=== PATIENT | female | born 1955 | race Caucasian/White ===

== ENCOUNTER → 2017-05-16 | Outpatient (CLI) | payer OTHER, BC ==
[~2017-05-16] MED LIST: AMOX1TAB64 PO; CAPE500T24 PO; CHOL10002 PO; HYDR-3240 PO; HYDR25TA6 PO; LEVO75TA PO; OMNIPAQUE 350 MG/ML, 100ML BOTTLE ONE; ONDA4TAB7 PO; OXYB5TAB33 PO; OXYC-302 PO; OXYC-306 PO; POLY17PO5 PO
== END | disposition home or self-care (01) ==
LOC: CFH 15:00
PROVIDERS: ATTEND Internal Medicine Cardiovascular Disease
DX: I25.10 Atherosclerotic heart disease of native coronary artery without angina pectoris (principal); I77.819 Aortic ectasia, unspecified site; M51.34 Other intervertebral disc degeneration, thoracic region; Z85.048 Personal history of other malignant neoplasm of rectum, rectosigmoid junction, and anus; Z87.891 Personal history of nicotine dependence
CPT/HCPCS: 71275; 82565; 93306; Q9967

== ENCOUNTER → 2017-06-07 | Outpatient (CLI) | payer OTHER, BC ==
[~2017-06-07] MED LIST changes: -OMNIPAQUE 350 MG/ML, 100ML BOTTLE ONE
== END | disposition home or self-care (01) ==
LOC: CFH 10:44
PROVIDERS: ATTEND Specialist
DX: Z12.31 Encounter for screening mammogram for malignant neoplasm of breast (principal)
CPT/HCPCS: G0202

== ENCOUNTER 2018-03-07 11:35 | Emergency (ER) | payer BC, OTHER ==
[~2018-03-07] VITALS: Ht 162.6 cm; Wt 84.3 kg
[2018-03-07 12:38] LABS: BASOPHILS # (AUTO) 0.04 x10^3/uL (0-0.1); BASOPHILS % (AUTO) 1 % (0-1); EOSINOPHILS # (AUTO) 0.14 x10^3/uL (0-0.4); EOSINOPHILS % (AUTO) 2 % (1-7); LYMPHOCYTES # (AUTO) 1.21 x10^3/uL (1-3.4); LYMPHOCYTES % (AUTO) 15 % (22-44); MD NO; MEAN CORPUSCULAR HGB CONC 33.9 g/dL (32.4-35.8); MEAN CORPUSCULAR VOLUME 88.4 fL (80-100); MEAN PLATELET VOLUME 7.8 fL (7.4-10.4); MONOCYTES # (AUTO) 0.51 x10^3/uL (0.2-0.8); MONOCYTES % (AUTO) 6 % (2-9); NEUTROPHILS # (AUTO) 6.26 x10^3/uL (1.8-6.8); NEUTROPHILS % (AUTO) 77 % (42-75); PLATELET COUNT 308 x10^3/uL (130-400); RED BLOOD COUNT 4.79 x10^6/uL (3.82-5.3); RED CELL DISTRIBUTION WIDTH 13.6 % (9.6-15.2)
[2018-03-07 12:47] LABS: ALBUMIN 3.8 g/dL (3.4-5.0); ANION GAP 7 mmol/L (5-15); CALCIUM 8.8 mg/dL (8.5-10.1); CHLORIDE 111 mmol/L (98-107); CREATININE 0.78 mg/dL (0.55-1.02)
[2018-03-07 12:52] LABS: MICROSCOPIC INDICATED
[2018-03-07 12:58] LABS: CULTURE INDICATED? YES
[2018-03-07] MEDS ORDERED: CEFTRIAXONE PMX 1GM/50ML 50 ML IV ONE (13:30)
[2018-03-07 13:55] LABS: INTERNATIONAL NORMALIZED RATIO 1.02 (0.93-1.1); PROTHROMBIN TIME 10.5 Seconds (9.6-11.5)
[2018-03-07] MEDS ORDERED: CEFTRIAXONE PMX 1GM/50ML 50 ML ONE (14:13)
[2018-03-07 17:07] VITALS: BP 149/79
== END 2018-03-07 17:10 | disposition home or self-care (01) ==
LOC: ED 14:56
DX: R31.0 Gross hematuria (principal); N30.01 Acute cystitis with hematuria; I10 Essential (primary) hypertension
CPT/HCPCS: 36415; 74176; 80048; 81001; 82040; 83605; 85025; 85610; 87086; 96365; 96366; 99285; J0696

== ENCOUNTER → 2018-05-30 | Outpatient (CLI) | payer OTHER ==
[~2018-05-30] MED LIST changes: +ASPI-496 PO; +LEVO112T4 PO; +OMEG10007 PO
[2018-05-30 09:26] LABS: BASOPHILS # (AUTO) 0.03 x10^3/uL (0-0.1); BASOPHILS % (AUTO) 1 % (0-1); EOSINOPHILS # (AUTO) 0.17 x10^3/uL (0-0.4); EOSINOPHILS % (AUTO) 3 % (1-7); LYMPHOCYTES # (AUTO) 1.32 x10^3/uL (1-3.4); LYMPHOCYTES % (AUTO) 22 % (22-44); MD NO; MEAN CORPUSCULAR HEMOGLOBIN 30.2 pg (27.0-34.8); MEAN CORPUSCULAR HGB CONC 34.2 g/dL (32.4-35.8); MEAN CORPUSCULAR VOLUME 88.3 fL (80-100); MEAN PLATELET VOLUME 8.3 fL (7.4-10.4); MONOCYTES # (AUTO) 0.46 x10^3/uL (0.2-0.8); MONOCYTES % (AUTO) 8 % (2-9); NEUTROPHILS # (AUTO) 4.18 x10^3/uL (1.8-6.8); NEUTROPHILS % (AUTO) 68 % (42-75); PLATELET COUNT 318 x10^3/uL (130-400); RED BLOOD COUNT 5.25 x10^6/uL (3.82-5.3); RED CELL DISTRIBUTION WIDTH 13.2 % (9.6-15.2)
[2018-05-30 09:35] LABS: ALANINE AMINOTRANSFERASE 49 U/L (12-78); ALBUMIN 4.1 g/dL (3.4-5.0); ANION GAP 9 mmol/L (5-15); CALCIUM 9.2 mg/dL (8.5-10.1); CHLORIDE 102 mmol/L (98-107); CREATININE 0.88 mg/dL (0.55-1.02)
[2018-05-30 09:37] LABS: ALKALINE PHOSPHATASE 100 U/L (45-117); BILIRUBIN,TOTAL 1.2 mg/dL (0.2-1.0)
[2018-05-30 09:43] LABS: MICROSCOPIC AUTO
[2018-05-30 09:49] LABS: CULTURE INDICATED? YES
== END | disposition home or self-care (01) ==
LOC: STAR 08:23
PROVIDERS: ATTEND Colon & Rectal Surgery
DX: Z01.818 Encounter for other preprocedural examination (principal); Z85.048 Personal history of other malignant neoplasm of rectum, rectosigmoid junction, and anus; Z87.891 Personal history of nicotine dependence
CPT/HCPCS: 36415; 80053; 81001; 85025; 87077; 87086; 87186; 93005

== ENCOUNTER 2018-06-13 05:47 | Observation (INO) | payer OTHER ==
[~2018-06-13] VITALS: Ht 162.6 cm; Wt 97.0 kg
[2018-06-13] MEDS ORDERED: LACTATED RINGERS 1,000 ML IV SCH ×2 (06:29→06:49)
[2018-06-13] MEDS ORDERED: ACETAMINOPHEN 500 MG TABLET PO ONE (07:00)
[2018-06-13] MEDS ORDERED: ONDANSETRON ODT 8 MG PO ONE (07:00)
[2018-06-13] MEDS ORDERED: SCOPOLAMINE PATCH, 1.5MG PATCH.TD72 TD ONE (07:02)
[2018-06-13] MEDS ORDERED: BUPIVACAINE/PF-EPI 0.5% 1:200K ONE (07:06)
[2018-06-13] MEDS ORDERED: PROPOFOL 50 ML ONE ×2 (07:06→09:13)
[2018-06-13] MEDS ORDERED: FENTANYL PF 100 MCG/2ML ONE ×2 (07:06→10:07)
[2018-06-13] MEDS ORDERED: MIDAZOLAM 1 MG/ML, 2ML ONE ×2 (07:06→10:07)
[2018-06-13] MEDS ORDERED: CEFAZOLIN 1,000 MG ONE (07:07)
[2018-06-13] MEDS ORDERED: SUCCINYLCHOLINE 20 MG/ML, 10ML ONE (07:07)
[2018-06-13] MEDS ORDERED: DEXAMETHASONE 4 MG/ML, 1ML ONE ×2 (07:07)
[2018-06-13] MEDS ORDERED: ROCURONIUM 10MG/ML,5ML ONE (07:07)
[2018-06-13] MEDS ORDERED: EPHEDRINE 50 MG/ML, 1ML ONE (07:08)
[2018-06-13] MEDS ORDERED: SODIUM CHLORIDE 0.9% PF 10ML ONE (07:08)
[2018-06-13] MEDS ORDERED: PROPOFOL 10 MG/ML, 20ML ONE (07:11)
[2018-06-13] MEDS ORDERED: LIDOCAINE-MPF 2% ,5ML ONE (07:11)
[2018-06-13] MEDS ORDERED: hydrALAzine 20 MG/ML, 1ML IV PRN (07:30)
[2018-06-13] MEDS ORDERED: HYDROmorphone 1 MG/ML, 1ML IV PRN (07:30)
[2018-06-13] MEDS ORDERED: EPHEDRINE 50 MG/ML, 1ML IVPush PRN (07:30)
[2018-06-13] MEDS ORDERED: PROCHLORPERAZINE 5 MG/ML, 2ML IV PRN (07:30)
[2018-06-13] MEDS ORDERED: ALBUTEROL SULFATE 2.5 MG/3 ML NPPB PRN (07:30)
[2018-06-13] MEDS ORDERED: DIAZEPAM 5 MG/ML, 2ML IVPush PRN (07:30)
[2018-06-13] MEDS ORDERED: DIPHENHYDRAMINE 50 MG/ML, 1ML IVPush PRN ×2 (07:30→12:00)
[2018-06-13] MEDS ORDERED: LORazepam 2 MG/ML, 1ML IVPush PRN (07:30)
[2018-06-13] MEDS ORDERED: METOPROLOL 1 MG/ML, 5ML IV PRN (07:30)
[2018-06-13] MEDS ORDERED: LABETALOL 5MG/ML, 20ML IV PRN (07:30)
[2018-06-13] MEDS ORDERED: MEPERIDINE/PF 25MG/0.5ML IVPush PRN (07:30)
[2018-06-13] MEDS ORDERED: MORPHINE SULFATE 4 MG/ML, 1ML IVPush PRN ×2 (07:30→12:00)
[2018-06-13] MEDS ORDERED: OXYcodone 5 MG/5 ML ORAL.SOL UDC PO PRN (07:30)
[2018-06-13] MEDS ORDERED: CEFOTETAN PMX 1GM/50ML 50 ML ONE (07:49)
[2018-06-13] MEDS: FENTANYL PF 100 MCG/2ML IV PRN ×3 (10:06→10:48)
[2018-06-13] MEDS: MIDAZOLAM 1 MG/ML, 2ML IV PRN ×3 (10:06→10:48)
[2018-06-13] MEDS ORDERED: KETOROLAC 30 MG/1 ML ONE (10:20)
[2018-06-13] MEDS ORDERED: OXYcodone 5 MG/5 ML ORAL.SOL UDC ONE (10:20)
[2018-06-13] MEDS ORDERED: MORPHINE SULFATE 4 MG/ML, 1ML ONE (10:25)
[2018-06-13] MEDS ORDERED: ONDANSETRON ODT 4 MG ONE (11:41)
[2018-06-13 11:45] VITALS: BP 148/72
[2018-06-13] MEDS ORDERED: ONDANSETRON ODT 4 MG PO PRN (12:00)
[2018-06-13] MEDS ORDERED: ONDANSETRON 2MG/ML, 2ML IVPush PRN (12:00)
[2018-06-13 14:39] VITALS: BP 144/85
[2018-06-13] MEDS: OXYcodone/APAP 5/325MG TABLET PO PRN (14:39)
[2018-06-13] MEDS ORDERED: OXYcodone/APAP 5/325MG TABLET PO PRN (16:30)
[2018-06-13] MEDS ORDERED: KETOROLAC 30 MG/1 ML IV PRN (16:30)
[2018-06-13] MEDS: LACTATED RINGERS 1,000 ML IV SCH (17:00)
[2018-06-13 18:59] VITALS: BP 132/64
[2018-06-14] MEDS: OXYcodone/APAP 5/325MG TABLET PO PRN (01:03)
[2018-06-14 02:12] VITALS: BP 107/68
[2018-06-14] MEDS ORDERED: LEVOTHYROXINE 112 MCG TABLET PO SCH (06:00)
[2018-06-14] MEDS ORDERED: ASPIRIN 81 MG TABLET EC PO SCH (06:00)
[2018-06-14] MEDS: LACTATED RINGERS 1,000 ML IV SCH (07:18)
[2018-06-14] MEDS ORDERED: ENOXAPARIN 40 MG/0.4 ML SQ SCH (08:00)
[2018-06-14 08:25] VITALS: BP 120/72
[2018-06-14] MEDS ORDERED: HYDROCHLOROTHIAZIDE 25 MG TABLET PO SCH (09:00)
[2018-06-14] MEDS ORDERED: OXYC-302 PO (10:11)
[2018-06-14] MEDS ORDERED: POLY17PO5 PO (10:11)
== END 2018-06-14 11:45 | disposition home or self-care (01) ==
LOC: OUT 05:47 → 4NOR 11:29 → OUT 12:58 → 4NOR 12:58 → DCLOUNGE 06-14 11:32
PROVIDERS: ADMIT Colon & Rectal Surgery; ATTEND Colon & Rectal Surgery
DX: K43.5 Parastomal hernia without obstruction or gangrene (principal); Z85.048 Personal history of other malignant neoplasm of rectum, rectosigmoid junction, and anus; Z93.3 Colostomy status
CPT/HCPCS: 49654; 96372; C1781; G0378; J0330; J1100; J1650; J2250; J2704; J3010; J3490; J7120; Q0162; S0074; S2900; J0690

== ENCOUNTER 2018-06-21 22:15 | Inpatient (IN) | payer OTHER ==
[~2018-06-21] VITALS: Ht 162.6 cm; Wt 88.0 kg
[2018-06-21] MEDS ORDERED: ACETAMINOPHEN 500 MG TABLET PO ONE (23:00)
[2018-06-21] MEDS ORDERED: ACETAMINOPHEN 500 MG TABLET ONE (23:07)
[2018-06-21] MEDS ORDERED: SODIUM CHLORIDE 0.9% 1,000ML IVBOLUS ONE (23:30)
[2018-06-21 23:38] LABS: BASOPHILS # (AUTO) 0.07 x10^3/uL (0-0.1); BASOPHILS % (AUTO) 1 % (0-1); EOSINOPHILS # (AUTO) 0.25 x10^3/uL (0-0.4); EOSINOPHILS % (AUTO) 2 % (1-7); LYMPHOCYTES # (AUTO) 1.08 x10^3/uL (1-3.4); LYMPHOCYTES % (AUTO) 10 % (22-44); MD NO; MEAN CORPUSCULAR HGB CONC 33.9 g/dL (32.4-35.8); MEAN CORPUSCULAR VOLUME 88.8 fL (80-100); MEAN PLATELET VOLUME 7.7 fL (7.4-10.4); MONOCYTES # (AUTO) 0.77 x10^3/uL (0.2-0.8); MONOCYTES % (AUTO) 7 % (2-9); NEUTROPHILS # (AUTO) 8.83 x10^3/uL (1.8-6.8); NEUTROPHILS % (AUTO) 80 % (42-75); PLATELET COUNT 419 x10^3/uL (130-400); RED BLOOD COUNT 5.08 x10^6/uL (3.82-5.3); RED CELL DISTRIBUTION WIDTH 13.4 % (9.6-15.2)
[2018-06-21 23:51] LABS: ALANINE AMINOTRANSFERASE 27 U/L (12-78); ALBUMIN 3.4 g/dL (3.4-5.0); ANION GAP 12 mmol/L (5-15); CALCIUM 8.8 mg/dL (8.5-10.1); CHLORIDE 103 mmol/L (98-107)
[2018-06-21 23:53] LABS: ALKALINE PHOSPHATASE 85 U/L (45-117); BILIRUBIN,TOTAL 1.1 mg/dL (0.2-1.0); CREATININE 0.67 mg/dL (0.55-1.02); TOTAL PROTEIN 8.1 g/dL (6.4-8.2)
[2018-06-22] MEDS ORDERED: CEFTRIAXONE 1,000 MG IV ONE (01:00)
[2018-06-22] MEDS ORDERED: METRONIDAZOLE PMX 500MG/100ML 100 ML IV ONE (01:00)
[2018-06-22] MEDS ORDERED: ONDANSETRON 2MG/ML, 2ML ONE (01:33)
[2018-06-22] MEDS ORDERED: METRONIDAZOLE PMX 500MG/100ML 100 ML ONE (01:33)
[2018-06-22] MEDS ORDERED: MORPHINE SULFATE 4 MG/ML, 1ML ONE (01:33)
[2018-06-22] MEDS ORDERED: MORPHINE SULFATE 4 MG/ML, 1ML IVPush ONE ×2 (02:00→06:30)
[2018-06-22] MEDS ORDERED: ONDANSETRON 2MG/ML, 2ML IVPush ONE (02:00)
[2018-06-22 02:28] VITALS: BP 136/85
[2018-06-22] MEDS ORDERED: MAGN400O7 PO (03:08)
[2018-06-22] MEDS ORDERED: CEFTRIAXONE 1,000 MG in SODIUM CHLORIDE 0.9% 50 ML IV ONE (04:00)
[2018-06-22] MEDS ORDERED: OMNIPAQUE 350 MG/ML, 100ML BOTTLE ONE (05:38)
[2018-06-22] MEDS ORDERED: NS + 20MEQ KCL 1,000 ML IV SCH (06:52)
[2018-06-22] MEDS ORDERED: morphine SULFATE 10 MG/ML, 1ML IVPush PRN (07:00)
[2018-06-22] MEDS ORDERED: BISACODYL 10 MG SUPP PR PRN (07:00)
[2018-06-22] MEDS ORDERED: ONDANSETRON 2MG/ML, 2ML IVPush PRN (07:00)
[2018-06-22] MEDS ORDERED: POLYETHYLENE GLYCOL 17 GM PACKET PO PRN (07:00)
[2018-06-22 07:29] VITALS: BP 121/75
[2018-06-22] MEDS: FAMOTIDINE 20 MG TABLET PO SCH ×2 (08:08→21:53)
[2018-06-22] MEDS: SENNA/DOCUSATE TABLET PO SCH (08:08)
[2018-06-22] MEDS: LEVOTHYROXINE 112 MCG TABLET PO SCH (08:08)
[2018-06-22 08:48] LABS: ANION GAP 10 mmol/L (5-15); CALCIUM 8.1 mg/dL (8.5-10.1); CHLORIDE 107 mmol/L (98-107); CREATININE 0.57 mg/dL (0.55-1.02)
[2018-06-22 08:52] LABS: BASOPHILS # (AUTO) 0.06 x10^3/uL (0-0.1); BASOPHILS % (AUTO) 1 % (0-1); EOSINOPHILS # (AUTO) 0.21 x10^3/uL (0-0.4); EOSINOPHILS % (AUTO) 3 % (1-7); LYMPHOCYTES # (AUTO) 1.09 x10^3/uL (1-3.4); LYMPHOCYTES % (AUTO) 15 % (22-44); MD NO; MEAN CORPUSCULAR HEMOGLOBIN 29.5 pg (27.0-34.8); MEAN CORPUSCULAR HGB CONC 33.2 g/dL (32.4-35.8); MEAN CORPUSCULAR VOLUME 88.8 fL (80-100); MEAN PLATELET VOLUME 7.6 fL (7.4-10.4); MONOCYTES # (AUTO) 0.63 x10^3/uL (0.2-0.8); MONOCYTES % (AUTO) 9 % (2-9); NEUTROPHILS # (AUTO) 5.41 x10^3/uL (1.8-6.8); NEUTROPHILS % (AUTO) 73 % (42-75); PLATELET COUNT 379 x10^3/uL (130-400); RED BLOOD COUNT 4.52 x10^6/uL (3.82-5.3); RED CELL DISTRIBUTION WIDTH 13.7 % (9.6-15.2)
[2018-06-22] MEDS: ACETAMINOPHEN 325 MG TABLET PO PRN ×2 (09:57→17:39)
[2018-06-22] MEDS: D5%-0.45NACL+KCL 20MEQ 1,000 ML IV SCH (11:58)
[2018-06-22 12:37] VITALS: BP 122/79
[2018-06-22 20:28] VITALS: BP 129/78
[2018-06-23 00:44] VITALS: BP 121/77
[2018-06-23] MEDS: D5%-0.45NACL+KCL 20MEQ 1,000 ML IV SCH ×2 (01:00→17:03)
[2018-06-23] MEDS: ACETAMINOPHEN 325 MG TABLET PO PRN ×2 (03:35→20:05)
[2018-06-23 05:19] LABS: BASOPHILS # (AUTO) 0.05 x10^3/uL (0-0.1); BASOPHILS % (AUTO) 1 % (0-1); EOSINOPHILS # (AUTO) 0.19 x10^3/uL (0-0.4); EOSINOPHILS % (AUTO) 3 % (1-7); LYMPHOCYTES # (AUTO) 0.62 x10^3/uL (1-3.4); LYMPHOCYTES % (AUTO) 9 % (22-44); MD NO; MEAN CORPUSCULAR HEMOGLOBIN 29.9 pg (27.0-34.8); MEAN CORPUSCULAR HGB CONC 33.5 g/dL (32.4-35.8); MEAN CORPUSCULAR VOLUME 89.4 fL (80-100); MEAN PLATELET VOLUME 7.8 fL (7.4-10.4); MONOCYTES # (AUTO) 0.28 x10^3/uL (0.2-0.8); MONOCYTES % (AUTO) 4 % (2-9); NEUTROPHILS # (AUTO) 5.53 x10^3/uL (1.8-6.8); NEUTROPHILS % (AUTO) 83 % (42-75); PLATELET COUNT 391 x10^3/uL (130-400); RED BLOOD COUNT 4.72 x10^6/uL (3.82-5.3); RED CELL DISTRIBUTION WIDTH 13.2 % (9.6-15.2)
[2018-06-23 05:34] LABS: ANION GAP 6 mmol/L (5-15); CALCIUM 8.7 mg/dL (8.5-10.1); CHLORIDE 105 mmol/L (98-107); CREATININE 0.66 mg/dL (0.55-1.02)
[2018-06-23 07:05] VITALS: BP 131/83
[2018-06-23] MEDS: SENNA/DOCUSATE TABLET PO SCH (08:12)
[2018-06-23] MEDS: FAMOTIDINE 20 MG TABLET PO SCH ×2 (08:12→20:05)
[2018-06-23] MEDS: LEVOTHYROXINE 112 MCG TABLET PO SCH (08:12)
[2018-06-23] MEDS ORDERED: PROPOFOL 10 MG/ML, 50ML ONE (11:08)
[2018-06-23] MEDS ORDERED: CEFOTETAN 2 GM ONE (11:08)
[2018-06-23] MEDS ORDERED: FENTANYL PF 250 MCG/5ML ONE (11:44)
[2018-06-23] MEDS ORDERED: BUPIVACAINE/PF-EPI 0.5% 1:200K ONE (11:52)
[2018-06-23] MEDS ORDERED: SCOPOLAMINE PATCH, 1.5MG PATCH.TD72 TD ONE (12:04)
[2018-06-23] MEDS ORDERED: BUPIVACAINE/PF-EPI 0.5% 1:200K INFIL ONE (12:50)
[2018-06-23] MEDS ORDERED: ONDANSETRON 2MG/ML, 2ML ONE (13:11)
[2018-06-23] MEDS ORDERED: PROPOFOL 10 MG/ML, 20ML ONE (13:11)
[2018-06-23] MEDS ORDERED: CEFAZOLIN 1,000 MG ONE (13:11)
[2018-06-23] MEDS ORDERED: NEOSTIGMINE 1 MG/ML, 10ML ONE (13:11)
[2018-06-23] MEDS ORDERED: DEXAMETHASONE 4 MG/ML, 1ML ONE (13:11)
[2018-06-23] MEDS ORDERED: ROCURONIUM 10MG/ML,5ML ONE (13:11)
[2018-06-23] MEDS ORDERED: SUCCINYLCHOLINE 20 MG/ML, 10ML ONE (13:11)
[2018-06-23] MEDS ORDERED: GLYCOPYRROLATE 0.2MG/1ML, 5ML ONE (13:11)
[2018-06-23] MEDS ORDERED: MEPERIDINE/PF 25MG/0.5ML IVPush PRN (14:00)
[2018-06-23] MEDS ORDERED: PROCHLORPERAZINE 5 MG/ML, 2ML IV PRN (14:00)
[2018-06-23] MEDS ORDERED: HYDROmorphone 1 MG/ML, 1ML IV PRN (14:00)
[2018-06-23] MEDS ORDERED: DIPHENHYDRAMINE 50 MG/ML, 1ML IVPush PRN (14:00)
[2018-06-23] MEDS ORDERED: FENTANYL PF 100 MCG/2ML IV PRN (14:00)
[2018-06-23] MEDS ORDERED: HALOPERIDOL 5 MG/ML IV PRN (14:00)
[2018-06-23] MEDS ORDERED: OXYcodone/APAP 5/325MG TABLET PO PRN (15:30)
[2018-06-23] MEDS ORDERED: ONDANSETRON 2MG/ML, 2ML IV PRN (15:30)
[2018-06-23] MEDS ORDERED: POLYETHYLENE GLYCOL 17 GM PACKET PO PRN (15:30)
[2018-06-23 19:14] VITALS: BP 142/85
[2018-06-24 01:29] VITALS: BP 136/78
[2018-06-24] MEDS: DOCUSATE 100 MG CAPSULE PO PRN ×2 (04:35→22:00)
[2018-06-24] MEDS: LEVOTHYROXINE 112 MCG TABLET PO SCH (04:44)
[2018-06-24 06:16] LABS: BASOPHILS # (AUTO) 0.02 x10^3/uL (0-0.1); BASOPHILS % (AUTO) 0 % (0-1); EOSINOPHILS # (AUTO) 0.02 x10^3/uL (0-0.4); EOSINOPHILS % (AUTO) 0 % (1-7); LYMPHOCYTES # (AUTO) 0.74 x10^3/uL (1-3.4); LYMPHOCYTES % (AUTO) 10 % (22-44); MD NO; MEAN CORPUSCULAR HGB CONC 33.5 g/dL (32.4-35.8); MEAN CORPUSCULAR VOLUME 89.8 fL (80-100); MEAN PLATELET VOLUME 7.8 fL (7.4-10.4); MONOCYTES # (AUTO) 0.63 x10^3/uL (0.2-0.8); MONOCYTES % (AUTO) 8 % (2-9); NEUTROPHILS # (AUTO) 6.08 x10^3/uL (1.8-6.8); NEUTROPHILS % (AUTO) 81 % (42-75); PLATELET COUNT 377 x10^3/uL (130-400); RED BLOOD COUNT 4.72 x10^6/uL (3.82-5.3); RED CELL DISTRIBUTION WIDTH 13.4 % (9.6-15.2)
[2018-06-24 06:26] LABS: CHLORIDE 106 mmol/L (98-107)
[2018-06-24] MEDS: D5%-0.45NACL+KCL 20MEQ 1,000 ML IV SCH ×2 (06:28→21:53)
[2018-06-24 06:36] LABS: ALANINE AMINOTRANSFERASE 39 U/L (12-78); ALBUMIN 3.1 g/dL (3.4-5.0); ALKALINE PHOSPHATASE 96 U/L (45-117); ANION GAP 9 mmol/L (5-15); BILIRUBIN,TOTAL 0.6 mg/dL (0.2-1.0); CALCIUM 8.8 mg/dL (8.5-10.1); TOTAL PROTEIN 8.2 g/dL (6.4-8.2)
[2018-06-24 07:18] VITALS: BP 129/72
[2018-06-24] MEDS: FAMOTIDINE 20 MG TABLET PO SCH ×2 (08:47→22:00)
[2018-06-24] MEDS: SENNA/DOCUSATE TABLET PO SCH (08:47)
[2018-06-24 12:12] VITALS: BP 146/84
[2018-06-24 20:56] VITALS: BP 131/78
[2018-06-25 03:34] VITALS: BP 132/84
[2018-06-25 05:38] LABS: BASOPHILS # (AUTO) 0.05 x10^3/uL (0-0.1); BASOPHILS % (AUTO) 1 % (0-1); EOSINOPHILS # (AUTO) 0.15 x10^3/uL (0-0.4); EOSINOPHILS % (AUTO) 2 % (1-7); LYMPHOCYTES # (AUTO) 0.81 x10^3/uL (1-3.4); LYMPHOCYTES % (AUTO) 13 % (22-44); MD NO; MEAN CORPUSCULAR HEMOGLOBIN 30.3 pg (27.0-34.8); MEAN CORPUSCULAR HGB CONC 34.4 g/dL (32.4-35.8); MEAN CORPUSCULAR VOLUME 88.2 fL (80-100); MEAN PLATELET VOLUME 7.7 fL (7.4-10.4); MONOCYTES # (AUTO) 0.48 x10^3/uL (0.2-0.8); MONOCYTES % (AUTO) 8 % (2-9); NEUTROPHILS # (AUTO) 4.59 x10^3/uL (1.8-6.8); NEUTROPHILS % (AUTO) 76 % (42-75); PLATELET COUNT 355 x10^3/uL (130-400); RED BLOOD COUNT 4.55 x10^6/uL (3.82-5.3); RED CELL DISTRIBUTION WIDTH 13.2 % (9.6-15.2)
[2018-06-25 05:43] LABS: ANION GAP 10 mmol/L (5-15); CALCIUM 8.5 mg/dL (8.5-10.1); CHLORIDE 107 mmol/L (98-107); CREATININE 0.69 mg/dL (0.55-1.02)
[2018-06-25] MEDS: LEVOTHYROXINE 112 MCG TABLET PO SCH (05:58)
[2018-06-25 07:20] VITALS: BP 130/77
[2018-06-25] MEDS: SENNA/DOCUSATE TABLET PO SCH (08:15)
[2018-06-25] MEDS: FAMOTIDINE 20 MG TABLET PO SCH (08:15)
== END 2018-06-25 11:50 | disposition home or self-care (01) | DRG 330 ==
LOC: ED 23:55 → EDIP 06-22 00:56 → ED 06-22 01:17 → 3NW 06-22 02:12
PROVIDERS: ADMIT Family Medicine; ATTEND Family Medicine
PROC: 0WPF4JZ Removal of Synthetic Substitute from Abdominal Wall, Percutaneous Endoscopic Approach (ICD-10-PCS; 2018-06-23)
PROC: 0DQM4ZZ Repair Descending Colon, Percutaneous Endoscopic Approach (ICD-10-PCS; principal; 2018-06-23 10:45)
DX: K94.03 Colostomy malfunction (principal); K56.601 Complete intestinal obstruction, unspecified as to cause; E89.0 Postprocedural hypothyroidism; I10 Essential (primary) hypertension; Y83.8 Other surgical procedures as the cause of abnormal reaction of the patient, or of later complication, without mention of misadventure at the time of the procedure; E66.9 Obesity, unspecified; F17.200 Nicotine dependence, unspecified, uncomplicated; Z80.0 Family history of malignant neoplasm of digestive organs; Z80.7 Family history of other malignant neoplasms of lymphoid, hematopoietic and related tissues; Z82.5 Family history of asthma and other chronic lower respiratory diseases; Z83.3 Family history of diabetes mellitus; Z68.33 Body mass index [BMI] 33.0-33.9, adult; Z85.048 Personal history of other malignant neoplasm of rectum, rectosigmoid junction, and anus; Z90.49 Acquired absence of other specified parts of digestive tract
CPT/HCPCS: 36415; 99285; J3490; S0074; 74177; 80048; 80053; 83605; 83735; 85025; 96361; 96374; 96375; G0378; J0690; J0696; J1100; J2405; J2704; J2710; J3010; J3480; Q9967; J0330; J7030

== ENCOUNTER → 2018-11-11 | Outpatient (CLI) | payer OTHER ==
[~2018-11-11] MED LIST changes: +MAGN400O7 PO
== END | disposition home or self-care (01) ==
LOC: CFH 13:08
PROVIDERS: ATTEND Internal Medicine
DX: H74.91 Unspecified disorder of right middle ear and mastoid (principal)
CPT/HCPCS: 76536

== ENCOUNTER → 2018-11-26 | Outpatient (CLI) | payer OTHER | END | disposition home or self-care (01) | LOC: RAD 12:33 | PROVIDERS: ATTEND Internal Medicine | DX: K11.8 Other diseases of salivary glands (principal); L08.89 Other specified local infections of the skin and subcutaneous tissue | CPT/HCPCS: 10005; 76942; 88173 ==

== ENCOUNTER 2019-01-01 14:02 | Outpatient (CLI) | payer OTHER ==
[~2019-01-01 14:02] MED LIST changes: +OMNIPAQUE 350 MG/ML, 100ML BOTTLE ONE
== END 2019-01-01 23:59 | disposition home or self-care (01) ==
LOC: CFH 14:02
PROVIDERS: ATTEND Specialist
DX: K11.8 Other diseases of salivary glands (principal)
CPT/HCPCS: 70492; Q9967

== ENCOUNTER 2019-02-08 18:37 | Emergency (ER) | payer OTHER ==
[~2019-02-08] VITALS: Ht 162.6 cm; Wt 85.0 kg
[~2019-02-08 18:37] MED LIST changes: -OMNIPAQUE 350 MG/ML, 100ML BOTTLE ONE
[2019-02-08] MEDS ORDERED: IBUPROFEN 600 MG TABLET ONE (19:19)
[2019-02-08] MEDS ORDERED: SODIUM CHLORIDE 0.9% 1,000ML IVBOLUS ONE ×2 (19:30→20:30)
[2019-02-08] MEDS ORDERED: IBUPROFEN 600 MG TABLET PO ONE (19:30)
[2019-02-08] MEDS ORDERED: SODIUM CHLORIDE FLUSH 10ML SYR IVF ONE (19:30)
--- NOTE | 2019-02-08 19:39 | NUR ---
LAB AT BEDSIDE. PIV HAS BEEN STARTED AND IV FLUIDS INFUSING. PT MEDICATED WITH IBUPROFEN PER EMAR. PT SINUS TACHYCARDIA ON THE MONITOR 110-120'S. RESTING ON GURNEY WITH FAMILY AT BEDSIDE.
[2019-02-08 20:01] LABS: MEAN CORPUSCULAR HGB CONC 33.4 g/dL (32.4-35.8); MEAN CORPUSCULAR VOLUME 89.9 fL (80-100); MEAN PLATELET VOLUME 8.1 fL (7.4-10.4); PLATELET COUNT 244 x10^3/uL (130-400); RED BLOOD COUNT 4.57 x10^6/uL (3.82-5.3); RED CELL DISTRIBUTION WIDTH 13.6 % (9.6-15.2)
[2019-02-08 20:11] LABS: ALBUMIN 3.2 g/dL (3.4-5.0); ANION GAP 9 mmol/L (5-15); CALCIUM 7.9 mg/dL (8.5-10.1); CHLORIDE 107 mmol/L (98-107); CREATININE 0.92 mg/dL (0.55-1.02)
[2019-02-08 20:23] LABS: BASOPHILS % (AUTO) 0 % (0-1); EOSINOPHILS % (AUTO) 0 % (1-7); LYMPHOCYTES # (AUTO) 0.26 x10^3/uL (1-3.4); LYMPHOCYTES % (AUTO) 2 % (22-44); MD SCAN; MONOCYTES # (AUTO) 0.37 x10^3/uL (0.2-0.8); MONOCYTES % (AUTO) 3 % (2-9); NEUTROPHILS # (AUTO) 12.68 x10^3/uL (1.8-6.8); NEUTROPHILS % (AUTO) 95 % (42-75)
--- NOTE | 2019-02-08 20:44 | NUR ---
PT RESTING ON GURNEY WITH FAMILY AT BEDSIDE. URINE SAMPLE HAS BEEN COLLECTED AND SENT. SECOND LITER IV FLUIDS INFUSING.
[2019-02-08 20:48] LABS: CULTURE INDICATED? YES; MICROSCOPIC INDICATED
[2019-02-08] MEDS ORDERED: ACETAMINOPHEN 500 MG TABLET ONE (20:54)
[2019-02-08] MEDS ORDERED: CEFTRIAXONE PMX 1GM/50ML 50 ML ONE (20:54)
[2019-02-08] MEDS ORDERED: CEFTRIAXONE PMX 1GM/50ML 50 ML IVPB ONE (21:00)
[2019-02-08] MEDS ORDERED: ACETAMINOPHEN 500 MG TABLET PO ONE (21:00)
--- NOTE | 2019-02-08 21:28 | NUR ---
PHYSICIAN AT BEDSIDE UPDATED ON POC. VSS. FAMILY AT BEDSIDE.
[2019-02-08 22:32] VITALS: BP 136/76
--- NOTE | 2019-02-08 22:32 | NUR ---
IV FLUIDS COMPLETE. PIV REMOVED. DISCHARGE INSTRUCTIONS GIVEN.
== END 2019-02-08 22:34 | disposition home or self-care (01) ==
LOC: ED 21:50
DX: N10 Acute pyelonephritis (principal); E03.9 Hypothyroidism, unspecified; I10 Essential (primary) hypertension; Z87.891 Personal history of nicotine dependence
CPT/HCPCS: 36415; 71045; 80048; 81001; 82040; 83605; 84145; 85025; 87040; 87077; 87086; 96365; 99284; J0696; J7030

== ENCOUNTER 2019-02-09 10:15 | Emergency (ER) | payer OTHER ==
[~2019-02-09] VITALS: Ht 162.6 cm; Wt 83.0 kg
--- NOTE | 2019-02-09 10:50 | NUR ---
PT PUT ON MONITOR, IV ESTABLISHED. CALL LIGHT WITHIN REACH.
[2019-02-09] MEDS ORDERED: CEFTRIAXONE PMX 1GM/50ML 50 ML IVPB ONE (11:00)
[2019-02-09 11:08] LABS: MEAN CORPUSCULAR HEMOGLOBIN 28.9 pg (27.0-34.8); MEAN CORPUSCULAR HGB CONC 32.2 g/dL (32.4-35.8); MEAN PLATELET VOLUME 7.9 fL (7.4-10.4); PLATELET COUNT 216 x10^3/uL (130-400); RED BLOOD COUNT 4.48 x10^6/uL (3.82-5.3); RED CELL DISTRIBUTION WIDTH 13.6 % (9.6-15.2)
[2019-02-09] MEDS ORDERED: CEFTRIAXONE PMX 1GM/50ML 50 ML ONE (11:28)
[2019-02-09 11:33] LABS: BASOPHILS % (AUTO) 0 % (0-1); EOSINOPHILS % (AUTO) 0 % (1-7); LYMPHOCYTES # (AUTO) 0.41 x10^3/uL (1-3.4); LYMPHOCYTES % (AUTO) 2 % (22-44); MD SCAN; MONOCYTES # (AUTO) 0.61 x10^3/uL (0.2-0.8); MONOCYTES % (AUTO) 3 % (2-9); NEUTROPHILS # (AUTO) 17.21 x10^3/uL (1.8-6.8); NEUTROPHILS % (AUTO) 94 % (42-75)
--- NOTE | 2019-02-09 11:53 | NUR ---
PT CHART IN RECHECK
[2019-02-09 12:09] VITALS: BP 140/61
== END 2019-02-09 12:27 | disposition home or self-care (01) ==
LOC: ED 12:24
DX: N30.01 Acute cystitis with hematuria (principal); N10 Acute pyelonephritis; R78.81 Bacteremia; E03.9 Hypothyroidism, unspecified; I10 Essential (primary) hypertension
CPT/HCPCS: 36415; 85025; 96365; 99283; J0696

== ENCOUNTER 2019-02-09 15:56 | Inpatient (IN) | payer OTHER ==
[~2019-02-09] VITALS: Ht 165.1 cm; Wt 82.6 kg
--- NOTE | 2019-02-09 16:16 | NUR ---
FIRST CONTACT WITH PT: LISSETH. Pt resting on gurney. Family at bedside. Pt AOX4, skin is pink, warm, and dry, and pt has unlabored respirations with even chest rise and fall. Pt states, "I was called this morning and told the infection was in my blood and I needed to come back and get more antibiotics."
[2019-02-09] MEDS ORDERED: LEVOFLOXACIN/PMX 750MG/150ML 150 ML ONE (16:24)
[2019-02-09] MEDS ORDERED: ACETAMINOPHEN 500 MG TABLET ONE (16:24)
[2019-02-09] MEDS ORDERED: LEVOFLOXACIN/PMX 750MG/150ML 150 ML IVPB ONE (16:30)
[2019-02-09] MEDS ORDERED: SODIUM CHLORIDE 0.9% 1,000ML IVBOLUS ONE (16:30)
[2019-02-09] MEDS ORDERED: SODIUM CHLORIDE FLUSH 10ML SYR IVF ONE (16:30)
[2019-02-09] MEDS ORDERED: ACETAMINOPHEN 500 MG TABLET PO ONE (16:30)
--- NOTE | 2019-02-09 17:09 | NUR ---
Pt resting on gurney connected to NIBP, continous pulse ox, and hospital monitor. PIV fluids and medications infusing per EMAR. NADN. Bedrail up for safety measures. Call light within reach. No needs expressed at this time.
[2019-02-09] MEDS ORDERED: LABETALOL 5MG/ML, 20ML IVPush PRN (17:30)
[2019-02-09] MEDS ORDERED: ONDANSETRON ODT 4 MG PO PRN (17:30)
[2019-02-09] MEDS ORDERED: ONDANSETRON 2MG/ML, 2ML IVPush PRN (17:30)
[2019-02-09] MEDS ORDERED: POLYETHYLENE GLYCOL 17 GM PACKET PO PRN (17:30)
[2019-02-09 17:53] LABS: FREE T4 (FREE THYROXINE) 1.43 ng/dL (0.76-1.46)
--- NOTE | 2019-02-09 17:59 | NUR ---
Ultrasound PIV attempting to be established at bedside. Medication per EMAR stopped when left hand PIV discontinued due to infiltration.
--- NOTE | 2019-02-09 18:03 | NUR ---
Pt's left hand shows no signs or symptoms of phelbitis. PIV discontinued in left hand after pt reported to ED RN at 1749 that her hand "looked puffy and felt tingling."
--- NOTE | 2019-02-09 18:22 | NUR ---
New PIV established, 20g ultrasound placed in left AC. Please see IV insert charting. PIV medications reconnected and continued per EMAR.
--- NOTE | 2019-02-09 18:26 | NUR ---
Provided report to DAVONTE Salamanca. All questions answered. Pt ready to transer to floor from ED.
--- NOTE | 2019-02-09 18:35 | NUR ---
PT LEFT WITH PIV MEDICATIONS STILL INFUSING. PT TRANSFERRED TO FLOOR WITH TECH AND ALL PERSONAL BELONGINGS.
[2019-02-09 18:55] VITALS: BP 107/67
[2019-02-09] MEDS: D5%-0.45% NACL 1,000 ML IV SCH (19:44)
[2019-02-09] MEDS: MEROPENEM 1 GM in SODIUM CHLORIDE 0.9% 100 ML IV SCH (20:57)
[2019-02-09] MEDS: ENOXAPARIN 40 MG/0.4 ML SQ SCH (21:41)
[2019-02-09 23:27] LABS: CULTURE INDICATED? YES; MICROSCOPIC INDICATED
[2019-02-10 00:52] VITALS: BP 95/59
[2019-02-10] MEDS: D5%-0.45% NACL 1,000 ML IV SCH ×2 (03:40→16:01)
[2019-02-10 05:29] LABS: MEAN CORPUSCULAR HEMOGLOBIN 29.9 pg (27.0-34.8); MEAN CORPUSCULAR HGB CONC 32.8 g/dL (32.4-35.8); MEAN CORPUSCULAR VOLUME 90.9 fL (80-100); MEAN PLATELET VOLUME 8.5 fL (7.4-10.4); PLATELET COUNT 162 x10^3/uL (130-400); RED BLOOD COUNT 3.85 x10^6/uL (3.82-5.3)
[2019-02-10 05:33] LABS: CHLORIDE 111 mmol/L (98-107)
[2019-02-10] MEDS: LEVOTHYROXINE 112 MCG TABLET PO SCH (05:34)
[2019-02-10] MEDS: MEROPENEM 1 GM in SODIUM CHLORIDE 0.9% 100 ML IV SCH ×3 (05:34→22:17)
[2019-02-10 05:51] LABS: ALANINE AMINOTRANSFERASE 30 U/L (12-78); ALBUMIN 2.3 g/dL (3.4-5.0); ALKALINE PHOSPHATASE 57 U/L (45-117); ANION GAP 7 mmol/L (5-15); BILIRUBIN,TOTAL 0.8 mg/dL (0.2-1.0); CALCIUM 7.2 mg/dL (8.5-10.1); CREATININE 0.72 mg/dL (0.55-1.02); TOTAL PROTEIN 5.9 g/dL (6.4-8.2)
[2019-02-10] MEDS ORDERED: ACETAMINOPHEN 325 MG TABLET PO ONE (06:00)
[2019-02-10 06:09] LABS: BASOPHILS % (AUTO) 0 % (0-1); EOSINOPHILS # (AUTO) 0.06 x10^3/uL (0-0.4); EOSINOPHILS % (AUTO) 1 % (1-7); LYMPHOCYTES # (AUTO) 0.61 x10^3/uL (1-3.4); LYMPHOCYTES % (AUTO) 6 % (22-44); MD SCAN; MONOCYTES # (AUTO) 0.76 x10^3/uL (0.2-0.8); MONOCYTES % (AUTO) 7 % (2-9); NEUTROPHILS # (AUTO) 8.91 x10^3/uL (1.8-6.8); NEUTROPHILS % (AUTO) 86 % (42-75)
[2019-02-10 07:13] VITALS: BP 113/60
[2019-02-10] MEDS: SENNA/DOCUSATE TABLET PO SCH (09:00)
[2019-02-10] MEDS ORDERED: LEVOTHYROXINE 112 MCG TABLET PO SCH (09:00)
[2019-02-10] MEDS ORDERED: MAGNESIUM SULFATE PMX 2GM/50ML 50 ML IV ONE (10:00)
[2019-02-10] MEDS ORDERED: POTASSIUM CHLORIDE 20 MEQ TAB.ER.PRT PO ONE ×2 (10:00→13:00)
[2019-02-10 12:51] VITALS: BP 146/64
[2019-02-10] MEDS: NEUTRA PHOS K 250 MG TABLET PO SCH ×2 (16:01→21:33)
[2019-02-10] MEDS: KETOROLAC 30 MG/1 ML IVPush PRN (16:01)
[2019-02-10 19:07] VITALS: BP 131/76
[2019-02-10] MEDS: ENOXAPARIN 40 MG/0.4 ML SQ SCH (21:33)
[2019-02-11 00:38] VITALS: BP 118/79
[2019-02-11] MEDS: KETOROLAC 30 MG/1 ML IVPush PRN ×2 (00:41→14:52)
[2019-02-11] MEDS: D5%-0.45% NACL 1,000 ML IV SCH (01:39)
[2019-02-11] MEDS: LEVOTHYROXINE 112 MCG TABLET PO SCH ×2 (06:11→09:00)
[2019-02-11] MEDS: MEROPENEM 1 GM in SODIUM CHLORIDE 0.9% 100 ML IV SCH ×3 (06:11→21:41)
[2019-02-11 06:17] LABS: BASOPHILS # (AUTO) 0.03 x10^3/uL (0-0.1); BASOPHILS % (AUTO) 1 % (0-1); EOSINOPHILS # (AUTO) 0.15 x10^3/uL (0-0.4); EOSINOPHILS % (AUTO) 2 % (1-7); LYMPHOCYTES # (AUTO) 0.92 x10^3/uL (1-3.4); LYMPHOCYTES % (AUTO) 15 % (22-44); MD NO; MEAN CORPUSCULAR HEMOGLOBIN 29.7 pg (27.0-34.8); MEAN CORPUSCULAR HGB CONC 32.7 g/dL (32.4-35.8); MEAN CORPUSCULAR VOLUME 90.7 fL (80-100); MEAN PLATELET VOLUME 8.8 fL (7.4-10.4); MONOCYTES # (AUTO) 0.57 x10^3/uL (0.2-0.8); MONOCYTES % (AUTO) 9 % (2-9); NEUTROPHILS # (AUTO) 4.55 x10^3/uL (1.8-6.8); NEUTROPHILS % (AUTO) 73 % (42-75); PLATELET COUNT 214 x10^3/uL (130-400); RED BLOOD COUNT 3.82 x10^6/uL (3.82-5.3); RED CELL DISTRIBUTION WIDTH 13.7 % (9.6-15.2)
[2019-02-11 06:29] LABS: CHLORIDE 113 mmol/L (98-107)
[2019-02-11 06:36] LABS: ALANINE AMINOTRANSFERASE 23 U/L (12-78); ALBUMIN 2.3 g/dL (3.4-5.0); ALKALINE PHOSPHATASE 56 U/L (45-117); ANION GAP 6 mmol/L (5-15); BILIRUBIN,TOTAL 0.5 mg/dL (0.2-1.0); CALCIUM 7.5 mg/dL (8.5-10.1); CREATININE 0.65 mg/dL (0.55-1.02)
[2019-02-11 07:21] VITALS: BP 121/74
[2019-02-11] MEDS ORDERED: POTASSIUM CHLORIDE 20 MEQ TAB.ER.PRT PO ONE ×2 (08:00→11:00)
[2019-02-11] MEDS: NEUTRA PHOS K 250 MG TABLET PO SCH ×3 (08:56→21:25)
[2019-02-11] MEDS: SENNA/DOCUSATE TABLET PO SCH (08:56)
[2019-02-11] MEDS ORDERED: OMNIPAQUE 350 MG/ML, 100ML BOTTLE ONE (11:18)
[2019-02-11 14:13] VITALS: BP 145/86
[2019-02-11] MEDS ORDERED: PANTOPRAZOLE 40 MG IV IVPush SCH (14:30)
[2019-02-11] MEDS ORDERED: D5%-0.45% NACL 1,000 ML IV SCH (17:19)
[2019-02-11 19:47] VITALS: BP 154/71
[2019-02-11] MEDS: ENOXAPARIN 40 MG/0.4 ML SQ SCH (21:26)
[2019-02-12 01:33] VITALS: BP 147/76
[2019-02-12] MEDS: MEROPENEM 1 GM in SODIUM CHLORIDE 0.9% 100 ML IV SCH (05:48)
[2019-02-12] MEDS ORDERED: PANTOPROZOLE 40MG TABLET PO SCH (06:00)
[2019-02-12 06:01] LABS: ALBUMIN 2.6 g/dL (3.4-5.0); ANION GAP 7 mmol/L (5-15); CALCIUM 7.8 mg/dL (8.5-10.1); CHLORIDE 109 mmol/L (98-107)
[2019-02-12 06:05] LABS: ALANINE AMINOTRANSFERASE 19 U/L (12-78); ALKALINE PHOSPHATASE 58 U/L (45-117); BILIRUBIN,TOTAL 0.6 mg/dL (0.2-1.0); CREATININE 0.66 mg/dL (0.55-1.02); TOTAL PROTEIN 6.8 g/dL (6.4-8.2)
[2019-02-12 06:07] LABS: BASOPHILS # (AUTO) 0.02 x10^3/uL (0-0.1); BASOPHILS % (AUTO) 0 % (0-1); EOSINOPHILS # (AUTO) 0.19 x10^3/uL (0-0.4); EOSINOPHILS % (AUTO) 3 % (1-7); LYMPHOCYTES # (AUTO) 0.91 x10^3/uL (1-3.4); LYMPHOCYTES % (AUTO) 15 % (22-44); MD NO; MEAN CORPUSCULAR HEMOGLOBIN 29.2 pg (27.0-34.8); MEAN CORPUSCULAR HGB CONC 33.2 g/dL (32.4-35.8); MEAN PLATELET VOLUME 7.7 fL (7.4-10.4); MONOCYTES # (AUTO) 0.51 x10^3/uL (0.2-0.8); MONOCYTES % (AUTO) 8 % (2-9); NEUTROPHILS # (AUTO) 4.57 x10^3/uL (1.8-6.8); NEUTROPHILS % (AUTO) 74 % (42-75); PLATELET COUNT 259 x10^3/uL (130-400); RED BLOOD COUNT 4.08 x10^6/uL (3.82-5.3); RED CELL DISTRIBUTION WIDTH 13.6 % (9.6-15.2)
[2019-02-12 07:16] VITALS: BP 153/69
[2019-02-12] MEDS ORDERED: CEFD300C37 PO (07:53)
[2019-02-12] MEDS ORDERED: ERTAPENEM 1 GM in SODIUM CHLORIDE 0.9% 50 ML IV SCH (08:00)
[2019-02-12] MEDS: SENNA/DOCUSATE TABLET PO SCH (08:30)
[2019-02-12] MEDS: LEVOTHYROXINE 112 MCG TABLET PO SCH (08:40)
[2019-02-12] MEDS: NEUTRA PHOS K 250 MG TABLET PO SCH (08:40)
== END 2019-02-12 09:40 | disposition home or self-care (01) | DRG 872 ==
LOC: ED 16:13 → EDIP 16:20 → 4EST 18:33 → DCLOUNGE 02-12 09:30
PROVIDERS: ADMIT Hospitalist; ATTEND Hospitalist
DX: A41.50 Gram-negative sepsis, unspecified (principal); N10 Acute pyelonephritis; E87.6 Hypokalemia; E89.0 Postprocedural hypothyroidism; I10 Essential (primary) hypertension; Z80.0 Family history of malignant neoplasm of digestive organs; Z80.7 Family history of other malignant neoplasms of lymphoid, hematopoietic and related tissues; Z82.5 Family history of asthma and other chronic lower respiratory diseases; Z85.048 Personal history of other malignant neoplasm of rectum, rectosigmoid junction, and anus; Z87.891 Personal history of nicotine dependence; Z92.21 Personal history of antineoplastic chemotherapy; Z92.3 Personal history of irradiation; Z93.3 Colostomy status
CPT/HCPCS: 36415; 74177; 80053; 81001; 83605; 83735; 84100; 84439; 84443; 85025; 87040; 87086; 96361; 96374; 99285; G0378; J1335; J1650; J1885; J1956; J2185; Q0162; Q9967; C9113; J3475; J7030

== ENCOUNTER 2019-04-08 07:19 | Outpatient (CLI) | payer OTHER ==
[~2019-04-08 07:19] MED LIST changes: +CEFD300C37 PO
[2019-04-08] MEDS ORDERED: FUROSEMIDE 20 MG/2 ML ONE (07:32)
[2019-04-18] MEDS ORDERED: CEFT2FRO2 IVPB (12:18)
[2019-04-18] MEDS ORDERED: POTA10TA5 PO (15:27)
[2019-05-23] MEDS ORDERED: METH1TAB13 PO (15:03)
[2019-05-25] MEDS ORDERED: CEFD300C37 PO ×2 (14:26)
[2019-06-22] MEDS ORDERED: POTA20TA6 PO (10:21)
[2019-06-22] MEDS ORDERED: MAGN400T26 PO (10:21)
[2019-06-22] MEDS ORDERED: SULF-169 PO (10:21)
[2019-06-22] MEDS ORDERED: AMLO-150 PO (10:21)
== END 2019-04-08 23:59 | disposition home or self-care (01) ==
LOC: PETCFH 07:19
PROVIDERS: ATTEND Urology
DX: N13.30 Unspecified hydronephrosis (principal)
CPT/HCPCS: 78708; A9562; J1940

== ENCOUNTER 2019-04-13 22:02 | Inpatient (IN) | payer MEDICARE, OTHER ==
[~2019-04-13] VITALS: Ht 165.1 cm; Wt 85.2 kg
[2019-04-19 06:37] VITALS: BP 139/78
== END 2019-04-19 11:43 | disposition home or self-care (01) | DRG 872 ==
LOC: ED 22:20 → EDIP 04-14 00:18 → 4WST 04-14 02:07 → 3NW 04-18 06:06 → DCLOUNGE 04-19 11:29
PROVIDERS: ADMIT Internal Medicine; ATTEND Internal Medicine
DX: A41.51 Sepsis due to Escherichia coli [E. coli] (principal); N10 Acute pyelonephritis; C20 Malignant neoplasm of rectum; E83.42 Hypomagnesemia; E87.6 Hypokalemia; E89.0 Postprocedural hypothyroidism; I10 Essential (primary) hypertension; Z79.899 Other long term (current) drug therapy; Z80.0 Family history of malignant neoplasm of digestive organs; Z80.7 Family history of other malignant neoplasms of lymphoid, hematopoietic and related tissues; Z82.5 Family history of asthma and other chronic lower respiratory diseases; Z85.048 Personal history of other malignant neoplasm of rectum, rectosigmoid junction, and anus; Z87.440 Personal history of urinary (tract) infections; Z87.891 Personal history of nicotine dependence; Z92.21 Personal history of antineoplastic chemotherapy; Z92.3 Personal history of irradiation; Z93.3 Colostomy status
CPT/HCPCS: 36415; 80048; 80053; 81001; 82962; 83605; 83735; 84145; 85025; 87040; 87077; 87086; 87186; 96374; 96375; G0378; J0696; J1650; J1885; J2405; J2270; J3475; J7030

== ENCOUNTER 2019-06-06 08:36 | Outpatient (CLI) | payer MEDICARE ==
[~2019-06-06 08:36] MED LIST changes: +CEFT2FRO2 IVPB; +METH1TAB13 PO; +POTA10TA5 PO
[2019-06-22] MEDS ORDERED: AMLO-150 PO (10:21)
[2019-06-22] MEDS ORDERED: MAGN400T26 PO (10:21)
[2019-06-22] MEDS ORDERED: POTA20TA6 PO (10:21)
[2019-06-22] MEDS ORDERED: SULF-169 PO (10:21)
== END 2019-06-06 23:59 | disposition home or self-care (01) ==
LOC: RAD 08:36
PROVIDERS: ATTEND Urology
DX: N13.9 Obstructive and reflux uropathy, unspecified (principal)
CPT/HCPCS: 51600; 74455; Q9958

== ENCOUNTER → 2019-07-10 | Outpatient (CLI) | payer MEDICARE ==
[~2019-07-10] MED LIST changes: +AMLO-150 PO; +GADOTERATE 10 MMOL/20 ML SYR ONE; +MAGN400T26 PO; +OMNIPAQUE 350 MG/ML, 100ML BOTTLE ONE; +POTA20TA6 PO; +SULF-169 PO
== END | disposition home or self-care (01) ==
LOC: CFH 11:30
PROVIDERS: ATTEND Family Medicine
DX: M47.896 Other spondylosis, lumbar region (principal); K76.89 Other specified diseases of liver; Z87.891 Personal history of nicotine dependence; Z85.038 Personal history of other malignant neoplasm of large intestine; Z80.0 Family history of malignant neoplasm of digestive organs; Z83.3 Family history of diabetes mellitus; Z83.6 Family history of other diseases of the respiratory system; Z84.89 Family history of other specified conditions; Z85.048 Personal history of other malignant neoplasm of rectum, rectosigmoid junction, and anus; K44.9 Diaphragmatic hernia without obstruction or gangrene; N13.30 Unspecified hydronephrosis
CPT/HCPCS: 71260; 72158; 74177; A9575; Q9967

== ENCOUNTER → 2019-08-13 | Outpatient (CLI) | payer MEDICARE ==
[~2019-08-13] MED LIST changes: -GADOTERATE 10 MMOL/20 ML SYR ONE; -OMNIPAQUE 350 MG/ML, 100ML BOTTLE ONE
== END | disposition home or self-care (01) ==
LOC: CFH 11:50
PROVIDERS: ATTEND Family Medicine
DX: C20 Malignant neoplasm of rectum (principal); N85.8 Other specified noninflammatory disorders of uterus; K43.9 Ventral hernia without obstruction or gangrene; N94.89 Other specified conditions associated with female genital organs and menstrual cycle; E03.9 Hypothyroidism, unspecified; N83.01 Follicular cyst of right ovary; Z87.891 Personal history of nicotine dependence; Z86.718 Personal history of other venous thrombosis and embolism; Z80.0 Family history of malignant neoplasm of digestive organs; Z98.890 Other specified postprocedural states; Z96.89 Presence of other specified functional implants; Z93.3 Colostomy status; Z85.048 Personal history of other malignant neoplasm of rectum, rectosigmoid junction, and anus
CPT/HCPCS: 76830; 78815; A9552

== ENCOUNTER → 2020-02-16 | Outpatient (CLI) | payer MEDICARE | END | disposition home or self-care (01) | LOC: CFH 10:20 → EDSTATUS 10:45 | PROVIDERS: ATTEND Physician Assistant | DX: N39.0 Urinary tract infection, site not specified (principal) | CPT/HCPCS: 76770 ==

== ENCOUNTER → 2021-03-22 | Outpatient (CLI) | payer MEDICARE ==
[~2021-03-22] MED LIST changes: +HYDR-2214 PO; -HYDR-3240 PO; +OMNIPAQUE 350 MG/ML, 150 ML BOTTLE ONE; -OXYC-302 PO; -OXYC-306 PO; +OXYC1TAB14 PO; +OXYC1TAB17 PO
== END | disposition home or self-care (01) ==
LOC: CFH 08:57
PROVIDERS: ATTEND Physician Assistant
DX: N13.30 Unspecified hydronephrosis (principal); R19.09 Other intra-abdominal and pelvic swelling, mass and lump; N39.0 Urinary tract infection, site not specified
CPT/HCPCS: 74178; Q9967

== ENCOUNTER 2021-05-04 17:55 | Inpatient (IN) | payer MEDICARE ==
[~2021-05-04] VITALS: Ht 165.1 cm; Wt 88.0 kg
[~2021-05-04 17:55] MED LIST changes: +CEPH-376 PO; +CIPR750T PO; +LEVO112T2 PO; -OMNIPAQUE 350 MG/ML, 150 ML BOTTLE ONE; +OXYC1TAB12 PO; -OXYC1TAB14 PO; +OXYC1TAB16 PO; -OXYC1TAB17 PO; +POTA-143 PO; -POTA20TA6 PO
--- NOTE | 2021-05-04 18:34 | NUR ---
telephonic nurse: Pt ambulatory to room from lobby at this time.
[2021-05-04 18:47] LABS: ALBUMIN 2.8 g/dL (3.4-5.0); ANION GAP 9 mmol/L (5-15); BASOPHILS % (AUTO) 0 % (0-1); CALCIUM 7.9 mg/dL (8.5-10.1); CHLORIDE 104 mmol/L (98-107); EOSINOPHILS % (AUTO) 2 % (1-7); LYMPHOCYTES % (AUTO) 10 % (22-44); MEAN CORPUSCULAR HEMOGLOBIN 29.3 pg (27.0-34.8); MEAN CORPUSCULAR HGB CONC 33.7 g/dL (32.4-35.8); MEAN PLATELET VOLUME 7.8 fL (7.4-10.4); MONOCYTES % (AUTO) 7 % (2-9); NEUTROPHILS % (AUTO) 80 % (42-75); PLATELET COUNT 492 x10^3/uL (130-400); RED BLOOD COUNT 4.23 x10^6/uL (3.82-5.3); RED CELL DISTRIBUTION WIDTH 13.6 % (9.6-15.2)
[2021-05-04 18:52] LABS: ALANINE AMINOTRANSFERASE 21 U/L (12-78); ALKALINE PHOSPHATASE 61 U/L (45-117); BILIRUBIN,TOTAL 0.8 mg/dL (0.2-1.0); CREATININE 3.35 mg/dL (0.55-1.02); TOTAL PROTEIN 8.7 g/dL (6.4-8.2)
[2021-05-04] MEDS ORDERED: SODIUM CHLORIDE 0.9% 1,000ML IVBOLUS ONE (19:00)
[2021-05-04] MEDS ORDERED: SODIUM CHLORIDE 0.9% 1,000 ML IV ONE (20:00)
[2021-05-04] MEDS ORDERED: DOCUSATE 100 MG CAPSULE PO PRN (21:00)
[2021-05-04] MEDS ORDERED: MELATONIN 5 MG TABLET PO PRN (21:00)
[2021-05-04] MEDS: SODIUM CHLORIDE 0.9% 1,000 ML IV SCH (22:19)
[2021-05-04 22:26] LABS: MICROSCOPIC AUTO
[2021-05-04 22:40] VITALS: BP 133/82
[2021-05-04] MEDS ORDERED: SUCR1TAB PO (23:30)
[2021-05-04] MEDS ORDERED: TOLT4CAP27 PO (23:32)
[2021-05-04] MEDS: HEPARIN 5,000 UNITS/ML, 1ML SQ SCH (23:48)
[2021-05-05 00:06] VITALS: BP 137/75
[2021-05-05] MEDS: SODIUM CHLORIDE 0.9% 1,000 ML IV SCH ×3 (01:10→14:30)
[2021-05-05] MEDS ORDERED: CEFTAZIDIME 1,000 MG in SODIUM CHLORIDE 0.9% 50 ML IV SCH (01:30)
[2021-05-05] MEDS: CEFTAZIDIME 1,000 MG in SODIUM CHLORIDE 0.9% 50 ML IVPB SCH (02:44)
[2021-05-05 08:26] LABS: ANION GAP 8 mmol/L (5-15); CALCIUM 7.2 mg/dL (8.5-10.1); CHLORIDE 109 mmol/L (98-107); CREATININE 3.38 mg/dL (0.55-1.02)
[2021-05-05 08:33] VITALS: BP 145/84
[2021-05-05 08:33] LABS: BASOPHILS % (AUTO) 1 % (0-1); EOSINOPHILS % (AUTO) 3 % (1-7); LYMPHOCYTES % (AUTO) 11 % (22-44); MEAN CORPUSCULAR HEMOGLOBIN 28.8 pg (27.0-34.8); MEAN CORPUSCULAR HGB CONC 33.4 g/dL (32.4-35.8); MEAN PLATELET VOLUME 7.3 fL (7.4-10.4); MONOCYTES % (AUTO) 9 % (2-9); NEUTROPHILS % (AUTO) 77 % (42-75); PLATELET COUNT 434 x10^3/uL (130-400); RED BLOOD COUNT 3.88 x10^6/uL (3.82-5.3); RED CELL DISTRIBUTION WIDTH 13.7 % (9.6-15.2)
[2021-05-05] MEDS: HEPARIN 5,000 UNITS/ML, 1ML SQ SCH ×2 (09:20→16:49)
[2021-05-05 09:25] LABS: ALBUMIN 2.5 g/dL (3.4-5.0)
[2021-05-05] MEDS ORDERED: POTASSIUM CHLORIDE 20 MEQ TAB.ER.PRT PO ONE (10:00)
[2021-05-05 10:21] LABS: ALANINE AMINOTRANSFERASE 19 U/L (12-78); ALKALINE PHOSPHATASE 54 U/L (45-117); BILIRUBIN,TOTAL 0.6 mg/dL (0.2-1.0); TOTAL PROTEIN 7.7 g/dL (6.4-8.2)
[2021-05-05 13:40] VITALS: BP 134/68
[2021-05-05 18:53] VITALS: BP 139/78
[2021-05-05] MEDS: AMLODIPINE 5 MG TABLET PO SCH (21:06)
[2021-05-06] MEDS: HEPARIN 5,000 UNITS/ML, 1ML SQ SCH ×3 (00:56→16:11)
[2021-05-06 01:02] VITALS: BP 145/77
[2021-05-06] MEDS: ACETAMINOPHEN 325 MG TABLET PO PRN ×3 (02:16→20:28)
[2021-05-06] MEDS: CEFTAZIDIME 1,000 MG in SODIUM CHLORIDE 0.9% 50 ML IVPB SCH (02:17)
[2021-05-06 04:58] LABS: ANION GAP 8 mmol/L (5-15); CALCIUM 7.6 mg/dL (8.5-10.1); CHLORIDE 110 mmol/L (98-107)
[2021-05-06 04:59] LABS: CREATININE 3.52 mg/dL (0.55-1.02)
[2021-05-06] MEDS: LEVOTHYROXINE 112 MCG TABLET PO SCH (06:00)
[2021-05-06 07:33] VITALS: BP 162/89
[2021-05-06] MEDS: TOLTERODINE LA 4MG CAP.ER.24H PO SCH (08:56)
[2021-05-06] MEDS: AMLODIPINE 5 MG TABLET PO SCH ×2 (08:57→20:28)
[2021-05-06] MEDS: SODIUM CHLORIDE 0.9% 1,000 ML IV SCH ×2 (09:00→19:00)
[2021-05-06] MEDS ORDERED: OXYcodone/APAP 5/325MG TABLET PO PRN (10:30)
[2021-05-06] MEDS ORDERED: HYDROcodone/APAP 5/325 TABLET ONE (11:07)
[2021-05-06] MEDS ORDERED: HYDROcodone/APAP 5/325 TABLET PO PRN (11:30)
[2021-05-06 12:40] VITALS: BP 154/82
[2021-05-06 19:15] VITALS: BP 136/81
[2021-05-07 01:19] VITALS: BP 137/81
[2021-05-07] MEDS: CEFTAZIDIME 1,000 MG in SODIUM CHLORIDE 0.9% 50 ML IVPB SCH (02:00)
[2021-05-07] MEDS: SODIUM CHLORIDE 0.9% 1,000 ML IV SCH (05:00)
[2021-05-07] MEDS: HEPARIN 5,000 UNITS/ML, 1ML SQ SCH ×4 (05:56→21:10)
[2021-05-07] MEDS: LEVOTHYROXINE 112 MCG TABLET PO SCH (05:56)
[2021-05-07 06:20] LABS: BASOPHILS % (AUTO) 1 % (0-1); EOSINOPHILS % (AUTO) 5 % (1-7); LYMPHOCYTES % (AUTO) 18 % (22-44); MEAN CORPUSCULAR HEMOGLOBIN 28.6 pg (27.0-34.8); MEAN CORPUSCULAR HGB CONC 32.6 g/dL (32.4-35.8); MEAN PLATELET VOLUME 7.4 fL (7.4-10.4); MONOCYTES % (AUTO) 11 % (2-9); NEUTROPHILS % (AUTO) 65 % (42-75); PLATELET COUNT 434 x10^3/uL (130-400); RED BLOOD COUNT 4.02 x10^6/uL (3.82-5.3); RED CELL DISTRIBUTION WIDTH 13.8 % (9.6-15.2)
[2021-05-07 06:30] LABS: ALBUMIN 2.4 g/dL (3.4-5.0); ANION GAP 7 mmol/L (5-15); CALCIUM 7.6 mg/dL (8.5-10.1); CHLORIDE 111 mmol/L (98-107)
[2021-05-07 06:36] LABS: % IRON SATURATION 20 % (20-55); ALANINE AMINOTRANSFERASE 13 U/L (12-78); ALKALINE PHOSPHATASE 54 U/L (45-117); BILIRUBIN,TOTAL 0.4 mg/dL (0.2-1.0); CREATININE 3.29 mg/dL (0.55-1.02); IRON LEVEL 54 mcg/dL (50-170); TOTAL IRON BINDING CAPACITY 270 mcg/dL (250-450)
[2021-05-07 06:52] VITALS: BP 149/85
[2021-05-07] MEDS: TOLTERODINE LA 4MG CAP.ER.24H PO SCH (08:35)
[2021-05-07] MEDS: AMLODIPINE 5 MG TABLET PO SCH ×2 (08:36→21:10)
[2021-05-07] MEDS: ONDANSETRON 2MG/ML, 2ML IVPush PRN (08:36)
[2021-05-07] MEDS ORDERED: MAGNESIUM SULFATE PMX 4GM/100M 100 ML IVPB ONE (09:30)
[2021-05-07] MEDS: IRON SUCROSE COMPLEX 100MG/5ML IV SCH (13:04)
[2021-05-07 13:17] VITALS: BP 119/78
[2021-05-07] MEDS: ACETAMINOPHEN 325 MG TABLET PO PRN ×2 (16:37→21:10)
[2021-05-07 19:56] VITALS: BP 137/72
[2021-05-08 01:57] VITALS: BP 110/56
[2021-05-08] MEDS: CEFTAZIDIME 1,000 MG in SODIUM CHLORIDE 0.9% 50 ML IVPB SCH (02:04)
[2021-05-08 04:33] LABS: BASOPHILS % (AUTO) 1 % (0-1); EOSINOPHILS % (AUTO) 5 % (1-7); LYMPHOCYTES % (AUTO) 17 % (22-44); MEAN CORPUSCULAR HEMOGLOBIN 28.9 pg (27.0-34.8); MEAN CORPUSCULAR HGB CONC 33.3 g/dL (32.4-35.8); MEAN PLATELET VOLUME 7.2 fL (7.4-10.4); MONOCYTES % (AUTO) 9 % (2-9); NEUTROPHILS % (AUTO) 68 % (42-75); PLATELET COUNT 409 x10^3/uL (130-400); RED BLOOD COUNT 3.89 x10^6/uL (3.82-5.3); RED CELL DISTRIBUTION WIDTH 13.8 % (9.6-15.2)
[2021-05-08 04:40] LABS: ALBUMIN 2.4 g/dL (3.4-5.0); CALCIUM 8.1 mg/dL (8.5-10.1); CHLORIDE 107 mmol/L (98-107)
[2021-05-08 04:44] LABS: ALANINE AMINOTRANSFERASE 13 U/L (12-78); ALKALINE PHOSPHATASE 56 U/L (45-117); ANION GAP 8 mmol/L (5-15); BILIRUBIN,TOTAL 0.5 mg/dL (0.2-1.0); CREATININE 2.94 mg/dL (0.55-1.02)
[2021-05-08] MEDS: LEVOTHYROXINE 112 MCG TABLET PO SCH (06:00)
[2021-05-08] MEDS: HEPARIN 5,000 UNITS/ML, 1ML SQ SCH ×3 (06:24→21:12)
[2021-05-08 06:55] VITALS: BP 135/81
[2021-05-08] MEDS: TOLTERODINE LA 4MG CAP.ER.24H PO SCH (08:43)
[2021-05-08] MEDS: AMLODIPINE 5 MG TABLET PO SCH ×2 (08:43→21:11)
[2021-05-08] MEDS: SODIUM CHLORIDE 0.9% 1,000 ML IV SCH ×2 (08:44→15:56)
[2021-05-08 12:26] VITALS: BP 141/63
[2021-05-08] MEDS: IRON SUCROSE COMPLEX 100MG/5ML IV SCH (13:12)
[2021-05-08 19:18] VITALS: BP 115/74
[2021-05-08] MEDS: ONDANSETRON 2MG/ML, 2ML IVPush PRN (22:38)
[2021-05-09] MEDS: SODIUM CHLORIDE 0.9% 1,000 ML IV SCH ×2 (00:14→07:32)
[2021-05-09 00:20] VITALS: BP 119/71
[2021-05-09] MEDS: CEFTAZIDIME 1,000 MG in SODIUM CHLORIDE 0.9% 50 ML IVPB SCH (02:37)
[2021-05-09] MEDS: HEPARIN 5,000 UNITS/ML, 1ML SQ SCH ×3 (06:05→21:22)
[2021-05-09] MEDS: LEVOTHYROXINE 112 MCG TABLET PO SCH (06:05)
[2021-05-09 06:46] VITALS: BP 140/79
[2021-05-09 06:47] LABS: ANION GAP 5 mmol/L (5-15); CALCIUM 8.5 mg/dL (8.5-10.1); CHLORIDE 110 mmol/L (98-107); CREATININE 2.44 mg/dL (0.55-1.02)
[2021-05-09] MEDS: AMLODIPINE 5 MG TABLET PO SCH ×2 (07:32→21:22)
[2021-05-09] MEDS: TOLTERODINE LA 4MG CAP.ER.24H PO SCH (07:32)
[2021-05-09] MEDS: IRON SUCROSE COMPLEX 100MG/5ML IV SCH (13:13)
[2021-05-09 13:39] VITALS: BP 130/79
[2021-05-09] MEDS: ACETAMINOPHEN 325 MG TABLET PO PRN (17:52)
[2021-05-09 19:10] VITALS: BP 155/77
[2021-05-10 02:22] VITALS: BP 131/82
[2021-05-10] MEDS: ONDANSETRON 2MG/ML, 2ML IVPush PRN (02:23)
[2021-05-10] MEDS: CEFTAZIDIME 1,000 MG in SODIUM CHLORIDE 0.9% 50 ML IVPB SCH (02:23)
[2021-05-10 04:50] LABS: BASOPHILS % (AUTO) 1 % (0-1); EOSINOPHILS % (AUTO) 4 % (1-7); LYMPHOCYTES % (AUTO) 14 % (22-44); MEAN CORPUSCULAR HEMOGLOBIN 29.4 pg (27.0-34.8); MEAN CORPUSCULAR HGB CONC 33.7 g/dL (32.4-35.8); MEAN PLATELET VOLUME 7.4 fL (7.4-10.4); MONOCYTES % (AUTO) 9 % (2-9); NEUTROPHILS % (AUTO) 71 % (42-75); PLATELET COUNT 399 x10^3/uL (130-400); RED BLOOD COUNT 3.91 x10^6/uL (3.82-5.3); RED CELL DISTRIBUTION WIDTH 13.7 % (9.6-15.2)
[2021-05-10 05:01] LABS: ANION GAP 5 mmol/L (5-15); CALCIUM 8.9 mg/dL (8.5-10.1); CHLORIDE 108 mmol/L (98-107); CREATININE 2.16 mg/dL (0.55-1.02)
[2021-05-10] MEDS: HEPARIN 5,000 UNITS/ML, 1ML SQ SCH (05:57)
[2021-05-10] MEDS: LEVOTHYROXINE 112 MCG TABLET PO SCH (05:57)
[2021-05-10] MEDS: TOLTERODINE LA 4MG CAP.ER.24H PO SCH (07:30)
[2021-05-10] MEDS: AMLODIPINE 5 MG TABLET PO SCH (07:30)
[2021-05-10 07:31] VITALS: BP 138/83
[2021-05-10] MEDS ORDERED: CIPR500T87 PO (10:47)
[2021-05-10] MEDS ORDERED: FERR324T18 PO (10:47)
[2021-05-10] MEDS ORDERED: ONDA4TAB7 PO (11:06)
== END 2021-05-10 12:20 | disposition home or self-care (01) | DRG 871 ==
LOC: ED 21:08 → EDIP 23:06 → 4NW 23:33
PROVIDERS: ADMIT Internal Medicine; ATTEND Internal Medicine
DX: A41.52 Sepsis due to Pseudomonas (principal); N17.0 Acute kidney failure with tubular necrosis; K61.1 Rectal abscess; N13.6 Pyonephrosis; B96.5 Pseudomonas (aeruginosa) (mallei) (pseudomallei) as the cause of diseases classified elsewhere; D64.9 Anemia, unspecified; E83.51 Hypocalcemia; E87.6 Hypokalemia; E89.0 Postprocedural hypothyroidism; N13.9 Obstructive and reflux uropathy, unspecified; E86.0 Dehydration; I12.9 Hypertensive chronic kidney disease with stage 1 through stage 4 chronic kidney disease, or unspecified chronic kidney disease; N18.9 Chronic kidney disease, unspecified; R53.83 Other fatigue; R32 Unspecified urinary incontinence; Z80.0 Family history of malignant neoplasm of digestive organs; Z80.7 Family history of other malignant neoplasms of lymphoid, hematopoietic and related tissues; Z82.49 Family history of ischemic heart disease and other diseases of the circulatory system; Z82.5 Family history of asthma and other chronic lower respiratory diseases; Z83.3 Family history of diabetes mellitus; Z85.048 Personal history of other malignant neoplasm of rectum, rectosigmoid junction, and anus; Z87.891 Personal history of nicotine dependence; Z93.3 Colostomy status; Z90.721 Acquired absence of ovaries, unilateral
CPT/HCPCS: 36415; 76770; 80048; 80053; 81001; 82306; 82330; 82728; 83540; 83550; 83735; 83970; 84100; 84145; 84550; 85025; 87086; 99285; G0378; J0713; J1644; J1756; J2405; J3475; J7030

== ENCOUNTER 2021-06-01 07:42 | Day surgery (SDC) | payer MEDICARE ==
[~2021-06-01] VITALS: Ht 165.1 cm; Wt 84.8 kg
[~2021-06-01 07:42] MED LIST changes: +CIPR500T87 PO; +FERR324T18 PO; +SUCR1TAB PO; +TOLT4CAP27 PO
[2021-06-01 08:23] VITALS: BP 142/86
[2021-06-01] MEDS ORDERED: CEFAZOLIN PMX 1GM/50ML 50 ML IV ONE (08:30)
[2021-06-01] MEDS ORDERED: SODIUM CHLORIDE 0.9% 1,000 ML IV SCH (08:30)
[2021-06-01] MEDS ORDERED: NALOXONE 1 MG/ML, 2ML ONE (09:53)
[2021-06-01] MEDS ORDERED: MIDAZOLAM 1 MG/ML, 5ML ONE ×2 (09:53)
[2021-06-01] MEDS ORDERED: FLUMAZENIL 0.1 MG/1 ML, 5ML ONE (09:53)
[2021-06-01] MEDS ORDERED: FENTANYL PF 100 MCG/2ML ONE (09:53)
[2021-06-01] MEDS ORDERED: LIDOCAINE 1%, 20ML ONE (10:01)
[2021-06-01] MEDS ORDERED: LIDOCAINE 1%, 10ML ONE (10:01)
[2021-06-01] MEDS ORDERED: ACETAMINOPHEN 500 MG TABLET PO ONE (12:00)
== END 2021-06-01 12:50 | disposition home or self-care (01) ==
LOC: OUT 07:42
PROVIDERS: ATTEND Specialist
DX: C20 Malignant neoplasm of rectum (principal); I10 Essential (primary) hypertension; E89.0 Postprocedural hypothyroidism; Z79.890 Hormone replacement therapy; Z79.899 Other long term (current) drug therapy; Z87.891 Personal history of nicotine dependence; Z88.5 Allergy status to narcotic agent; Z80.0 Family history of malignant neoplasm of digestive organs
CPT/HCPCS: 36561; 76937; 77001; 99156; 99157; C1788; C1894; J1642; J2250; J3010; J2310